=== PATIENT | female | born 1950 | race Caucasian/White ===

== ENCOUNTER 2023-11-07 10:21 | Outpatient (AMB) | payer MEDICARE, SELFPAY ==
--- NOTE | 2023-11-07 10:34 | HO.NEPHOV ---
HPI HPI Comments History of Present Illness Details Kymberly was seen in the office in follow-up of her hypo magnesemia. 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 She has seen oncologist in [facility] or lung lesion. 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 She continues to have cramps and has been having difficulty tolerating magnesium replacements. She does not have any nausea, vomiting and diarrhea. She had been on amiloride which had been discontinued. Her blood pressure is well controlled on metoprolol and irbesartan. She was accompanied by her in the office today. 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 Keratoconus Hyponatremia Hypertension Gitelman syndrome Diet-controlled diabetes mellitus Colon polyp Chronic hypokalemia Cerebral aneurysm without rupture Aneurysm Surgical History (Updated 11/07/23 @ 09:19 by Monica Barrera MA) History of cholecystectomy Hx of tonsillectomy History of cataract surgery Family History (Updated 11/07/23 @ 09:22 by Monica Barrera MA) Mother Pancreatic cancer Father Heart attack Paternal Grandfather Heart attack Social History (Updated 11/07/23 @ 09:22 by Monica Barrera MA) Alcohol intake: former Patient Tobacco Use Status: Former Tobacco user Vital Signs 11/07/23 10:36 Height 5 ft 3 in Weight 156 lb 4 oz BMI 27.7 BP 150/60 H Blood Pressure Location Rt brachial Position Sitting Pulse 82 Pulse Source Pulse Oximeter Physical Exam Vital Signs: Last Vital Signs Pulse 82 11/07/23 10:36 BP 150/60 H 11/07/23 10:36 BMI result Body Mass Index 27.7 Const General: comfortable and no acute distress Orientation/consciousness: patient oriented x3 HEENT Head: Yes normocephalic Mouth: Normal oral and palatal mucosa present Neck Neck: Yes supple Resp Auscultation: clear to auscultation bilaterally Cardio Jugular venous distension: no JVD Rate: regular rate GI Palpation (GI): Soft to palpation Auscultation: normal bowel sounds General: Yes no CVA tenderness Back/Spine/Pelvis Back: no CVA tenderness Skin General skin exam: no rashes or lesions noted Neuro General: patient oriented x3 and moves all extremities Extrem General: Yes no pedal edema Assessment & Plan Assessment & Plan (1) Hypertension: Code(s): I10 - Essential (primary) hypertension Qualifiers: Hypertension type: primary hypertension Qualified Code(s): I10 - Essential (primary) hypertension (2) Gitelman syndrome: Code(s): E83.42 - Hypomagnesemia; E87.6 - Hypokalemia (3) Hyponatremia: Code(s): E87.1 - Hypo-osmolality and hyponatremia Plan Kymberly has history of electrolyte abnormalities. I encouraged her to go back on amiloride and keep up with magnesium replacements. Given history of hyponatremia, she should contain her free water intake. Her blood pressure is currently well controlled on current medication regimen. 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 She was encouraged to continue to follow up in [place]. I did not make any other medication changes today. All her and her 's questions were answered. Follow-up given. Orders: Orders Electrolytes 11/07/23 I10 - Essential (primary) hypertension, E83.42 - Hypomagnesemia, E87.6 - Hypokalemia, E87.1 - Hypo-osmolality and hyponatremia Magnesium 11/07/23 I10 - Essential (primary) hypertension, E83.42 - Hypomagnesemia, E87.6 - Hypokalemia, E87.1 - Hypo-osmolality and hyponatremia Calcium 11/07/23 I10 - Essential (primary) hypertension, E83.42 - Hypomagnesemia, E87.6 - Hypokalemia, E87.1 - Hypo-osmolality and hyponatremia Vitamin D 25-OH Total 11/07/23 I10 - Essential (primary) hypertension, E83.42 - Hypomagnesemia, E87.6 - Hypokalemia, E87.1 - Hypo-osmolality and hyponatremia Magnesium 11/07/23 I10 - Essential (primary) hypertension, E83.42 - Hypomagnesemia, E87.6 - Hypokalemia, E87.1 - Hypo-osmolality and hyponatremia Electrolytes 11/07/23 I10 - Essential (primary) hypertension, E83.42 - Hypomagnesemia, E87.6 - Hypokalemia, E87.1 - Hypo-osmolality and hyponatremia Medications: New magnesium chloride (Slow-Mag) 71.5 mg PO BID 60 tabs 4RF 30 days Coding Level of Care Code Est Pt Level 4 (15850) Diagnoses Primary hypertension I10 Hypertension type: primary hypertension Gitelman syndrome E83.42; E87.6 Hyponatremia E87.1 Results Reviewed Nephrology Results: Sodium 133 mmol/L (135-145) L 11/07/23 Potassium 4.2 mmol/L (3.3-5.1) 11/07/23 Chloride 101 mmol/L (96-108) 11/07/23 Carbon Dioxide 24 mmol/L (22-29) 11/07/23 Calcium 9.9 mg/dL (8.4-10.2) 11/07/23
[2023-11-07 10:36] VITALS: BP 150/60; PULSE 82; BMI 27.7
== END 2023-11-07 11:31 | disposition home or self-care (01) ==
PROVIDERS: PCP Pediatrics; Visit Provider Internal Medicine Nephrology
DX: I10 Essential (primary) hypertension (principal); E83.42 Hypomagnesemia; E87.6 Hypokalemia; E87.1 Hypo-osmolality and hyponatremia
CPT/HCPCS: 99214

== ENCOUNTER → 2023-11-07 10:21 | Outpatient (BNVA) | payer MEDICARE, SELFPAY | PROVIDERS: PCP Pediatrics; Visit Provider Internal Medicine Nephrology | DX: E83.42 Hypomagnesemia (principal); E87.6 Hypokalemia; E87.1 Hypo-osmolality and hyponatremia; I10 Essential (primary) hypertension | CPT/HCPCS: 99212 ==

== ENCOUNTER 2023-11-07 11:39 | Outpatient (REF) | payer MEDICARE, SELFPAY ==
[2023-11-07 14:25] LABS: Anion Gap 12 (12-20); Calcium 9.9 mg/dL (8.4-10.2); Carbon Dioxide 24 mmol/L (22-29); Chloride 101 mmol/L (96-108); Magnesium 2.2 mg/dL (1.6-2.6); Potassium 4.2 mmol/L (3.3-5.1); Sodium 133 mmol/L (135-145)
[2023-11-07 15:12] LABS: Vitamin D 25-OH Total 48.3 ng/mL (>30)
== END 2023-11-07 11:40 | disposition home or self-care (01) ==
LOC: HO.10HDL 11:39
PROVIDERS: Visit Provider Internal Medicine Nephrology
DX: E83.42 Hypomagnesemia (principal); E87.6 Hypokalemia; E87.1 Hypo-osmolality and hyponatremia; I10 Essential (primary) hypertension
CPT/HCPCS: 36415; 80051; 82306; 82310; 83735

== ENCOUNTER 2023-12-24 09:54 | Outpatient (AMB) | payer MEDICARE, SELFPAY ==
[2023-12-24 10:12] VITALS: BP 150/60; PULSE 73; O2SAT 98; BMI 28.4
--- NOTE | 2023-12-24 10:12 | HO.NEPHOV ---
HPI HPI Comments History of Present Illness Details Kymberly was seen in the office in follow-up of her hypo magnesemia. 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 She has seen oncologist in [facility] for lung lesion. She underwent right eye surgery for [place] cell carcinoma. She continues to have cramps and has been having difficulty tolerating magnesium replacements. She does not have any nausea, vomiting and diarrhea. She had been on amiloride at a lower dose. Her blood pressure is well controlled on metoprolol and irbesartan. She had a imaging study of the lung which showed a lung nodule which had been followed up. 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 Hyponatremia Hypertension Gitelman syndrome Diet-controlled diabetes mellitus Colon polyp Chronic hypokalemia Cerebral aneurysm without rupture Aneurysm Surgical History History of cholecystectomy Hx of tonsillectomy History of cataract surgery Family History Mother Pancreatic cancer Father Heart attack Paternal Grandfather Heart attack Social History Alcohol intake: former Patient Tobacco Use Status: Former Tobacco user Vital Signs 12/24/23 10:12 Height 5 ft 3 in Weight 160 lb 4 oz BMI 28.4 BP 150/60 H Blood Pressure Location Lt brachial Position Sitting Pulse 73 Pulse Source Pulse Oximeter Pulse Oximetry (%) 98 Oxygen Delivery Method Room Air Physical Exam Vital Signs: Last Vital Signs Pulse 73 12/24/23 10:12 BP 150/60 H 12/24/23 10:12 Pulse Ox 98 12/24/23 10:12 Oxygen Delivery Method Room Air 12/24/23 10:12 BMI result Body Mass Index 28.4 Const General: comfortable and no acute distress Orientation/consciousness: patient oriented x3 HEENT Head: Yes normocephalic Mouth: Normal oral and palatal mucosa present Eyes EOM: EOMs intact bilaterally Neck Neck: Yes supple Resp Auscultation: clear to auscultation bilaterally Cardio Jugular venous distension: no JVD Rate: regular rate GI Palpation (GI): Soft to palpation Auscultation: normal bowel sounds General: Yes no CVA tenderness Back/Spine/Pelvis Back: no CVA tenderness Skin General skin exam: no rashes or lesions noted Neuro General: patient oriented x3 and moves all extremities Extrem General: Yes no pedal edema Assessment & Plan Assessment & Plan (1) Hyponatremia: Code(s): E87.1 - Hypo-osmolality and hyponatremia (2) Gitelman syndrome: Code(s): E83.42 - Hypomagnesemia; E87.6 - Hypokalemia (3) Hypertension: Code(s): I10 - Essential (primary) hypertension Qualifiers: Hypertension type: primary hypertension Qualified Code(s): I10 - Essential (primary) hypertension Plan Kymberly has history of electrolyte abnormalities. I increased her amiloride to 5 mg bid and keep up with magnesium replacements. Given history of hyponatremia, she should contain her free water intake. Her blood pressure is currently well controlled on current medication regimen. 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 She was encouraged to continue to follow up in [place]. She likely will need a biopsy of the pharyngeal and lung lesion. I did not make any other medication changes today. All her questions were answered. Follow-up given. Orders: Orders Magnesium 12/24/23 E83.42 - Hypomagnesemia, E87.1 - Hypo-osmolality and hyponatremia, E87.6 - Hypokalemia, I10 - Essential (primary) hypertension Electrolytes 12/24/23 E83.42 - Hypomagnesemia, E87.1 - Hypo-osmolality and hyponatremia, E87.6 - Hypokalemia, I10 - Essential (primary) hypertension Blood Urea Nitrogen 12/24/23 E83.42 - Hypomagnesemia, E87.1 - Hypo-osmolality and hyponatremia, E87.6 - Hypokalemia, I10 - Essential (primary) hypertension Calcium 12/24/23 E83.42 - Hypomagnesemia, E87.1 - Hypo-osmolality and hyponatremia, E87.6 - Hypokalemia, I10 - Essential (primary) hypertension Creatinine 12/24/23 E83.42 - Hypomagnesemia, E87.1 - Hypo-osmolality and hyponatremia, E87.6 - Hypokalemia, I10 - Essential (primary) hypertension Coding Level of Care Code Est Pt Level 3 (25223) Diagnoses Hyponatremia E87.1 Gitelman syndrome E83.42; E87.6 Primary hypertension I10 Hypertension type: primary hypertension Results Reviewed Nephrology Results: Sodium 133 mmol/L (135-145) L 11/07/23 Potassium 4.2 mmol/L (3.3-5.1) 11/07/23 Chloride 101 mmol/L (96-108) 11/07/23 Carbon Dioxide 24 mmol/L (22-29) 11/07/23 Calcium 9.9 mg/dL (8.4-10.2) 11/07/23
== END 2023-12-24 10:49 | disposition home or self-care (01) ==
PROVIDERS: PCP Pediatrics; Visit Provider Internal Medicine Nephrology
DX: E87.1 Hypo-osmolality and hyponatremia (principal); E83.42 Hypomagnesemia; E87.6 Hypokalemia; I10 Essential (primary) hypertension
CPT/HCPCS: 99213

== ENCOUNTER → 2023-12-24 09:54 | Outpatient (BNVA) | payer MEDICARE, SELFPAY | PROVIDERS: PCP Pediatrics; Visit Provider Internal Medicine Nephrology | DX: E87.1 Hypo-osmolality and hyponatremia (principal); E83.42 Hypomagnesemia; E87.6 Hypokalemia; I10 Essential (primary) hypertension | CPT/HCPCS: 99212 ==